=== PATIENT | male | born 1935 | race Caucasian/White ===

== ENCOUNTER 2016-06-12 11:13 | Inpatient (IN) | payer MEDICARE ==
[~2016-06-12] VITALS: Ht 177.8 cm; Wt 82.0 kg
[2016-06-12 11:26] VITALS: BP 140/73; PULSE 67; RESP 13; O2SAT 100
--- NOTE | 2016-06-12 11:26 | ED.REPORT ---
HPI-General Illness Date of Service Jun 12, 2016 ED Provider: Barrett Skaggs MD 81 year old male with a hx of DM (non-compliant with medications), HTN and dementia (per family, no official diagnosis) who presents to the ER via EMS due to confusion. Pt fell last night while walking the dog. The neighbor noted some slight slurring but otherwise cognitively normal. This morning at 09:30 the patient's son found the patient on the ground. He noted a broken L toe, but no other injury. At baseline the patient is alert and oriented x3. When I asked him why he was here today he stated "checking my 1935". Pt's states that the patient has not been eating well for 1-2 days. Medics noted the patient to have a reading of "hi" on the glucometer. Nursing Notes Stated Complaint: HIGH BLOOD PRESSURE Chief Complaint: General Complaint Nursing Notes Reviewed: Yes Allergies: Coded Allergies: No Known Allergies (Unverified , 06/12/16) General Time Seen by MD: 11:25 Chief Complaint Altered mental status Hx Obtained From: Patient, Spouse, Son, EMS Unable to Obtain Hx: Patient condition, Mental status Arrived By: Ambulance Past Medical History Past Medical History Reports: Diabetes mellitus, Hypertension, Denies: Asthma, Cancer, Congestive heart failure, Coronary artery disease, Stroke Reports: Dementia Past Surgical History None reported Smoking History Unknown if Ever Smoker Social History Other Social History: Good social support Review of Systems Unable to Obtain ROS Patient condition, Mental status (Confused) Full Review of Systems Neurologic: Reports: Confusion, Problem walking Physical Exam Vital Signs Vital Signs Date Time Temp Pulse Resp B/P Pulse Ox O2 Delivery O2 Flow Rate FiO2 06/12/16 14:30 77 15 126/48 99 Room Air 06/12/16 11:26 35.7 67 13 140/73 100 Room Air Initial VS: Reviewed General/Constitutional: Awake, Alert Head / Eyes: Atraumatic (No visible injury), Normocephalic, PERRL Neck: Atraumatic, Full range of motion Respiratory / Chest: Breath sounds NL, Breath sounds = bilat, No respiratory distress, No rales, No rhonchi, No wheezing Cardiovascular: Heart rate NL, Regular rhythm, Heart sounds NL, No murmurs, Cap refill not delayed, Peripheral circulation NL Abdomen: Soft, Non-tender Upper Extremities Upper Extremity / MS: Atraumatic, Inspection NL, Full range of motion, Non- tender Lower Extremity / Pelvis / MS: Full range of motion 2nd toe L foot broken Neurologic: No motor deficits (PEDERSEN x4) Mental Status: Positive: Confused, Disoriented to person, Disoriented to place , Disoriented to time Face symmetric Interpretation & Diagnostics Lab Results Interpretation Result Diagram: 06/12/16 1200 06/12/16 1200 Test 06/12/16 12:00 06/12/16 13:20 White Blood Count 19.4th/mm3 (3.8-10.1) Red Blood Count 3.58mil/mm3 (4.40-5.80) Hemoglobin 11.5g/dL (13.8-17.2) Hematocrit 33.1% (41.0-50.0) Mean Corpuscular Volume 92.5fL (81-100) Mean Corpuscular Hemoglobin 32.1pg (27.0-35.0) Mean Corpuscular Hemoglobin Concent 34.7% (32.0-37.0) Red Cell Distribution Width 12.8% (12.3-15.4) Platelet Count 317bil/L (150-400) Neutrophils (%) (Auto) 83.1% (40-74) Lymphocytes (%) (Auto) 5.6% (14-46) Monocytes (%) (Auto) 10.8% (4-12) Eosinophils (%) (Auto) 0.1% (0-5) Basophils (%) (Auto) 0.1% (0-3) Sodium Level 125mEq/L (134-144) Potassium Level 5.7mEq/L (3.5-5.2) Chloride Level 81mEq/L (97-108) Carbon Dioxide Level 10mmol/L (18-29) Blood Urea Nitrogen 88mg/dL (8-27) Creatinine 2.69mg/dL (0.76-1.27) Estimat Glomerular Filtration Rate 24mL/min (>59) Glucose Level 967mg/dL (60-99) Lactic Acid Level 2.2mmol/L (0.4-2.0) Calcium Level 9.0mg/dL (8.5-10.1) Total Bilirubin 0.5mg/dL (0.0-1.2) Aspartate Amino Transf (AST/SGOT) 22U/L (0-50) Alanine Aminotransferase (ALT/SGPT) 17U/L (0-44) Alkaline Phosphatase 76U/L (25-160) Total Protein 6.8g/dL (6.4-8.4) Albumin 3.9g/dL (3.4-5.0) Hold Gomez Top Tube Received (Received) Ketones Small (Negative) Urine Color Straw (YELLOW) Urine Appearance Clear (CLEAR,HAZY) Urine pH 5.0 (5.0-8.0) Urine Specific [place] 1.015 (1.003-1.035) Urine Protein Negativemg/dL (NEG,TRACE) Urine Glucose (UA) 1000mg/dL (NEGATIVE) Urine Ketones 15mg/dL (NEGATIVE) Urine Occult Blood Moderate (NEGATIVE) Urine Nitrite Negative (NEGATIVE) Urine Bilirubin Negative (NEGATIVE) Urine Urobilinogen Normalmg/dL (NORMAL) Urine Leukocyte Esterase Negative (NEGATIVE) Urine RBC 0-2/hpf (0-2) Urine WBC 0-5/hpf (0-5) Urine Epithelial Cells Occasional/hpf (NONE-MOD) Urine Crystals None seen (NONE SEEN) Urine Bacteria None/hpf (NONE-FEW) Urine Hyaline Casts None/lpf (NONE) Urine Granular Casts None seen (NONE SEEN) Urine Waxy Casts None seen (NONE SEEN) Urine Red Blood Cell Casts None seen (NONE SEEN) Urine White Blood Cell Casts None seen (NONE SEEN) Urine Mucus None seen (None Seen) Urine Trichomonas None seen (NONE SEEN) Urine Yeast None (NONE SEEN) Urinalysis Comment None Urine Culture Reflexed Not indicated General Lab Results Interp 1: Labs reviewed ECG Interpretation ECG Interpretation: PAC RBBB LVH with IVCD and secondary repol abnormality Prolonged QT interval Time: 11:45 Interpreted by: ED physician Normal ECG Interpretation: Normal rate (69), Normal sinus rhythm X-Ray Chest Interpretation Chest Xray Interpretation: IMPRESSION: No acute cardiopulmonary disease process. Dictated by: Gisselle Weaver MD, PhD on 06/12/2016 at 12:14 View: Portable, 1 view Interpretation / Wet Read by: Interpret - Radiologist CT Head Interpretation IMPRESSION: No acute intracranial disease process. Dictated by: Gisselle Weaver MD, PhD on 06/12/2016 at 12:57 Study: Head CT no contrast Interpretation / Wet Read by: Interpret - Radiologist Re-Eval/Medical Decision Med Decision/Clinical Course Elderly gentleman not well known to our emergency department comes with 2 days of worsening confusion and decreased by mouth intake and noncompliance with insulin medication. He had an unwitnessed fall in the past 2 days. While at baseline he is somewhat demented, today he is dramatically disoriented to the point where he does not recognize his own son. He has severe urinary retention and acute kidney injury and diabetic ketoacidosis with a glucose of 900 and anion gap of 36. He will be admitted to the ICU on DKA protocol copious oral hydration. No source of infection is identified at this point so no empiric antibiotics are instituted. Pittman catheter is placed. Prior to this, post void residual was 700 mL. Time of Eval: 13:30 Re-Evaluation/Progress Note: Updated pt and family of labs, ECG and imaging results. Recommended admission. They understand and agrees with plan. All questions addressed. Consultation : Referral / Consult Name: Christi Nicole MD Consulted With: Hospitalist Call Returned at: 14:45 Solar Sales Specialist: Will see patient, Agrees with eval, Agrees with plan, Accepts admit Counseled Regarding: Diagnosis, Lab results, Need for admission Discharge & Departure Primary Impression: DKA (diabetic ketoacidoses) Diabetes mellitus type: other specified (including CHASE) Diabetes mellitus complication detail: without coma Qualified Code: E13.10 - Other specified diabetes mellitus with ketoacidosis without coma Additional Impressions: Acute urinary retention Acute kidney injury Disposition: ADMITTED TO HOSPITAL Discharge Condition All VS Reviewed: Yes Crit Care Except Billable Proc Time Spent: 30-74 minutes Services Performed: Patient management by me, Time spent at bedside, Reviewing test results, Reviewing imaging, Discussing patient care, Documentation in record, Time with fam/surrogate Scribe Attestation Portions of this note were transcribed by Ofelia Darby. I, (Dr. Skaggs) personally performed the history, physical exam and medical decision-making; I reviewed and confirmed the accuracy of the information in the transcribed note. Signed by: Ofelia Darby. Alma Delia, 06/12/2016, 133Barrett Wayne MD Jun 12, 2016 11:26 Ofelia Darby Jun 12, 2016 12:29
--- NOTE | 2016-06-12 12:15 | DRSVH ---
PROCEDURE: X-RAY CHEST ONE VIEW, PORTABLE ([id number]) INDICATIONS: fall/ decreased loc, diabetic TECHNIQUE: One view of the chest was acquired. COMPARISON: None. FINDINGS: Surgical changes and devices: None. Lungs and pleura: No pleural effusions or pneumothorax. Lungs are clear. Mediastinum: Mediastinal contours appear normal. Heart size is normal. Bones and chest wall: No suspicious bony lesions. Overlying soft tissues appear unremarkable. IMPRESSION: No acute cardiopulmonary disease process. Dictated by: Gisselle Weaver MD, PhD on 06/12/2016 at 12:14 Approved by: Gisselle Weaver MD, PhD on 06/12/2016 at 12:14
[2016-06-12 12:23] LABS: BASOPHILS % (AUTO) 0.1 % (0-3); EOSINOPHILS % (AUTO) 0.1 % (0-5); MONOCYTES % (AUTO) 10.8 % (4-12); Mean Corpuscular Hemoglobin 32.1 pg (27.0-35.0); Mean Corpuscular Volume 92.5 fL (81-100); NEUTROPHILS % (AUTO) 83.1 % (40-74); Platelet Count 317 bil/L (150-400)
--- NOTE | 2016-06-12 13:00 | DRSVH ---
PROCEDURE: CT BRAIN WITHOUT CONTRAST ([id number]) INDICATIONS: fall TECHNIQUE: Noncontrast 4.5 mm thick angled axial sections acquired from the foramen magnum to the vertex, with c oronal reformats. COMPARISON: None. FINDINGS: Image quality: Limited by motion artifact. CSF spaces: Basal cisterns are patent. No extra-axial fluid collections. The ventricles are symmet bettye in size and shape. Brain: No intracranial bleeds or masses. There is cerebral volume loss for age, with resultant vent ricular and sulcal prominence. Old, small, right putamen lacunar infarct versus prominent perivascul ar space is noted. There are periventricular and deep white matter chronic small vessel ischemic grisel nges. There is intracranial internal carotid artery and vertebral artery atherosclerosis. Skull and face: Calvarium and visualized facial bones appear intact, without suspicious lesions. Sinuses: Visualized sinuses and mastoids are clear. IMPRESSION: No acute intracranial disease process. Dictated by: Gisselle Weaver MD, PhD on 06/12/2016 at 12:57 Approved by: Gisselle Weaver MD, PhD on 06/12/2016 at 12:59
[2016-06-12] MEDS ORDERED: 0.9% Sodium Chloride 1,000 ML IV SCH ×3 (13:10→22:15)
[2016-06-12] MEDS ORDERED: Lidocaine 2% 6mL Topical Jelly ONE (13:39)
[2016-06-12 13:44] LABS: APPEARANCE,URINE CLEAR (CLEAR,HAZY); COLOR,URINE STRAW (YELLOW); OCCULT BLOOD,URINE MODERATE (NEGATIVE); UROBILINOGEN,URINE NORMAL (NORMAL)
[2016-06-12 14:00] VITALS: BP 145/49; PULSE 75; RESP 19; O2SAT 100
--- NOTE | 2016-06-12 14:04 | NUR ---
Admit nurse: Attempted to complete admit, per medical record pt has hx of dementia. Pt is unable to provide information, whispers "diabetes" and "I have 13 or 14 or 18" randomly. Per ER nurse, pt gets his meds through the [facility], which is closed on Tuesday. Family does not have a med list with them, are currently not in the room. Will attempt to track family down and get more information.
[2016-06-12 14:30] VITALS: BP 126/48; PULSE 77; RESP 15; O2SAT 99
[2016-06-12] MEDS ORDERED: Insulin Human REGular Inj 100 UNIT in 0.9% Sodium Chloride-Pha MIX 100 ML IV ONE (14:35)
[2016-06-12] MEDS ORDERED: Insulin Human REGular-Omnicell 100 Unit/mL ONE (14:39)
[2016-06-12] MEDS ORDERED: Ondansetron 2 mg/mL 2 mL Inj IVPUSH PRN (14:50)
[2016-06-12] MEDS ORDERED: Alum-Mag Hydrox-Simeth 30 mL Suspension PO PRN (15:25)
[2016-06-12] MEDS ORDERED: Senna-Docusate 8.6-50 mg Tablet PO PRN (15:25)
[2016-06-12] MEDS ORDERED: Polyethylene Glycol (PEG) 17 Gm Powder PO PRN (15:25)
[2016-06-12 15:30] VITALS: BP 114/58; PULSE 80; RESP 16; O2SAT 100
--- NOTE | 2016-06-12 15:53 | PCM.HPMED ---
Subjective Date of Service Jun 12, 2016 Primary Provider: Admitting Physician: Christi Nicole MD Primary Care Physician: Kana Ferrari MD Attending Physician: Christi Nicole MD Admit Status: From the Emergency Department, Critical Care Chief Complaint: confusion, hyperglycemia History of Present Illness: He is reported to have some mild underlying dementia. He also has mood swings which are worse in the evenings. For at least the last 3 days he has been refusing to take insulin, stating that it doesn't help any way. His food and fluid intake has been poor and his reports he has not had anything since yesterday lunchtime. Last evening he was slurring his words and seemed confused and incoherent. He also fell last evening but no injury. This morning when son arrived the patient was on the floor, the falling in, no injury. Son says he was not very responsive, mostly not answering any questions , although he was conscious. assessment nurse practitioner were called and they did a Glucoscan and found that it was "high" and he was brought to the emergency department. There has not any fever, chills, sweats. No URI or cough. No complaints of pain is chronic intermittent headaches. He did vomit once last evening but no blood noted. does not think she had diarrhea. She is not aware of any urinary complaints. Review of Systems: he has complaining of headache for the last 6-8 months occurring on a nearly daily basis but has been seen by his PCP for this. He has been diagnosed with mild dementia but usually makes sense, but does have mood swings especially in the evenings which the says is felt to be related to his dementia. He is occasionally incontinent of stool, stating he did not make it to the bathroom time. Review of systems is otherwise unremarkable other than as noted in history of present illness Allergies Coded Allergies: No Known Allergies (Unverified , 06/12/16) Home Medications Patient is not able to give his medication list and also does not know the names of his medicines. She says he is on a pill for memory, 1 for mood, 1 for blood pressure that starts with L (agrees that it is lisinopril when this name is mentioned), one for cholesterol, possibly some others, and then he takes regular insulin and Lantus insulin although she does not know doses. 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 and it sounds like it had skin grafting from the neck Son and both deny knowledge of heart or lung disease Surgical History See past medical history Family History he never knew his father, thinks his mother had leukemia and related to a spider bite, a brother had prostate cancer and possibly there is some other cancer in the family, no known heart disease Social History Occupation: retired insurance underwriting assistant Hx Alcohol Use: Yes (he drinks on nearly a daily basis, often 8 ounces of wine per day but sometimes up to a full bottle per day, sometimes he has bourbon or whiskey instead, has not noted him to have her health withdrawal symptoms, as his last drink of alcohol was now at least a week ago) Hx Tobacco Use: Yes Smoking Status: Former Smoker (quit 5-10 years ago, at one point as high as 2 packs per day, started as a teenager), Unknown if Ever Smoker Exam Vital Signs Vital Sign - Last Date Time Temp Pulse Resp B/P Pulse Ox O2 Delivery O2 Flow Rate FiO2 06/12/16 14:30 77 15 126/48 99 Room Air 06/12/16 11:26 35.7 Exam General: Alert but does not answer questions appropriately, answering with words that do not make sense intact family. Seems anxious, moving restlessly on the bed. Neck: Supple, no lymphadenopathy, no JVD, carotids 2+ Heart: Regular Lungs: Clear Abdomen: Soft, non-tender, normal bowel tones, no apparent masses or hepatosplenomegaly, Pittman catheter in place. Extremities: No pedal edema. He has ecchymosis all over both kneecaps and also of the left second toe Neuro: Hand etl data architect strong and equal, some difficulty getting him to follow simple exams but eventually does lift both legs easily off the bed. Lab and Diagnostics Result Diagram: 06/12/16 1200 06/12/16 1200 Assessment & Plan # Diabetes mellitus with severe hyperglycemia and also diabetic ketoacidosis He is being admitted to the ICU and will follow DKA/insulin drip protocol Aggressive IV fluid resuscitation Follow potassium and other lab # Acute kidney injury, most likely related to volume depletion, will be treated as above. Volume Depletion most likely related to his hyperglycemia and poor recent intake # Urinary retention, Pittman catheter now in place It was reported by the ED physician that the patient was able to void 400 mL but then still had a another 700-800 mL by bladder scanner and Pittman catheter was placed # Acute worsening of underlying dementia, now with delirium Most likely this is multi-factorial and related to the above #Hypertension and hyperlipidemia Once he is stable and it is known what his medications can Resume his home medications Still needs med rec done, home med list not yet available Christi Nicole MD Jun 12, 2016 15:53
[2016-06-12] MEDS ORDERED: D5W1/2NS 1,000 mL IV PRN (16:00)
[2016-06-12 16:20] VITALS: BP 118/38; PULSE 76; RESP 13; O2SAT 99
[2016-06-12] MEDS: 0.9% Sodium Chloride 1,000 ML IV SCH ×4 (16:42→22:00)
[2016-06-12 17:12] LABS: Magnesium 2.8 mg/dL (1.6-2.6); Phosphorus 5.5 mg/dL (2.5-4.9)
--- NOTE | 2016-06-12 18:43 | NUR ---
Admit to CCU/BG/confusion Patient arrived to CCU from ER at 1550. Pt restless and confused, not following commands and pulling on lines. at bedside, unable to give any info about meds or med list. Family to bring it with them tomorrow. Bedside blood glucose trending down, insuling gtt running DKA protocol (see flow sheet). As blood sugar trends down, pt less agitated and restless. Son at bedside reassuring patient. Keeping pt NPO other than ice chips until confusion clears and pt is following commands. Frequent rounding continues. Pt turning and moving independently in bed. Bed alarm on
[2016-06-12 19:30] VITALS: BP 115/75; PULSE 76; RESP 16; O2SAT 98
[2016-06-13] VITALS (9 sets, daily range): BP systolic 128–174; BP diastolic 49–74; PULSE 61–101; RESP 13–26; O2SAT 93–100
[2016-06-13] MEDS ORDERED: Dextrose 5% 0.45% NaCl 1,000 ML IV SCH (00:15)
[2016-06-13] MEDS ORDERED: Insulin Human REGular 100 Units/100 mL NS IV SCH ×2 (00:20)
[2016-06-13] MEDS: 0.9% Sodium Chloride 1,000 ML IV SCH ×2 (00:37→18:24)
[2016-06-13 03:46] LABS: Mean Corpuscular Hemoglobin 31.6 pg (27.0-35.0)
[2016-06-13 04:05] LABS: Magnesium 2.5 mg/dL (1.6-2.6); Phosphorus 3.7 mg/dL (2.5-4.9)
--- NOTE | 2016-06-13 07:51 | NUR ---
DKA Pt DKA resolved. aware of lab results. DKA protocol D/C and Non-DKA initiated. Pt is confused and disoriented despite redirection and reorientation. Robert lynch was attempting pull on his FC and monitor wires. Sitter at the bedside for safety. VSS. No overt complications noted. (Please refer to CCU flowsheet and insulin flowsheet for further details)
--- NOTE | 2016-06-13 15:19 | NUR ---
Transfer of Care/mentation/BG Pt report given to Mukund AGUILLON on PCC. Pt on insulin gtt (see interventions), titrated per protocol. Pt LOC still alert, oriented to self and family. They state he is more confused than his baseline. Pt is pulling at lines and IV, using restraints when no sitter or family available. Frequent rounding continues. Pt moving independently in bed.
--- NOTE | 2016-06-13 16:01 | NUR ---
Social Work-initial assessment: Data & Assessment: See initial assessment. EMR Reviewed. Pt is a 81 y/o male who was admitted on 06/12/16 for Acute Mental Status, RONDA and DKA per H&P. Pt's insurance is [facility] and PCP is Kana Ferrari MD at [facility]. Pt's readmission score is 4-high risk. SW met with pt, patient's , Vivian [id number], to discuss discharge planning, SW role explained and initial assessment complete. Pt resides at home with in a single level home with three steps to enter where pt was independent with basic ADLs. Pt independent at baseline and does drive. Pt has no HH or SNF history. Pt has not completed DPOA/ advanced directive and accepted information from SW. Pt has no intermediate school teacher care benefits, but does have VA benefits. SW discussed HH services and skilled nursing care planning. SW provided patient and patient's family with a choice list for HH and SNF. Patient's family wanted to review. SW will follow patient to rule out HH and SNF. SW provided phone number and plan on white board in room. SW will continue to follow. Plan:Pt to likely discharge home with HH vs SNF. Pt's family is supportive. SW will continue to follow. Odalys Casillas LMSW, GUSTAVO Addendum: 06/13/16 at 1629 by ODALYS CASILLAS SS Amended: Links added.
--- NOTE | 2016-06-13 16:06 | PCM.PNMED ---
Subjective Date of Service Jun 13, 2016 Subjective Overnight since admission patient has done very well, now more alert and coming back to base line, metabolic acidosis resolved and blood sugars now under control on an IV non-dka protocol. Family came in and patient very unsure of how much insulin he uses, but uses Lantus at night and a short acting insulin apparently with a correctional scale. Often he does not use his insulin and he manages it. Exam Vital Signs Vital Sign - Last Date Time Temp Pulse Resp B/P Pulse Ox O2 Delivery O2 Flow Rate FiO2 06/13/16 12:15 101 26 174/74 97 OxyMask 4.00 06/13/16 12:00 36.7 Intake and Output 06/12/16 06/12/16 06/13/16 Cumulative From/Thru 15:00 23:00 07:00 06/12/16 11:26 - 06/13/16 06:48 Intake Total 2000 ml 3556 ml 932 ml 6488 ml Output Total 400 ml 1400 ml 800 ml 2600 ml Balance 1600 ml 2156 ml 132 ml 3888 ml Intake Oral 15 ml 15 ml IV Total 2000 ml 3541 ml 932 ml 6473 ml Output Urine Total 400 ml 1400 ml 800 ml 2600 ml Bladder Scan Volume Amount 717 mLs # Voids 1 1 Exam Eyes; julia, eom intact ENMT; well hydrated mucosa, no lesions CV; systolic murmur, no gallop, no jvd Resp; coarse but otherwise clear bilaterally GI; soft, non-acute and benign Skin; subacute mild bruising to both knees, swollen red and ecchymotic 2nd left toe Neuro; 2-12 intact with no gross motor or sensory defects, gait not tested at this time Lab and Diagnostics Result Diagram: 06/13/165 06/13/16 0315 Assessment & Plan #1 Acute Diabetic Keto Acidosis, present on admission, resolved -transition from IV DKA protocol to basal bolus insulin dosing -transfer to [facility] status -continue NS at 50cc/hour overnight -repeat bmp in am #2 Chronic type 2 Uncontrolled Diabetes Mellitus, now presumable insulin dependent, present on admission, active -HbA1C = 13.9 -home insulin doses not know and not being followed by patient, -start following insulin regimen, adjust in AM, and get home dosing -basal insulin; 5 q hs -nutritional insulin 3 ac meals -low dose correctional scale -will hold metformin during this admission,consider restarting at discharge -prior to patient going home an alternative career development facilitator will need to manage patient insulin and needs to be taught prior to discharge #3 Acute Renal Failure, present on admission, improving -secondary to DKA and dehydration -baseline unknown -creatinine 2.69 on admit, now 1.64 -hold metformin, lactic acid elevated on admit, now normal -continue NS at 50cc/hour -bmp in am #4 Acute Urinary Retention, present on admission, active -consider removing Pittman in am #5 Chronic Alcohol use disorder, present on admission, active -dose with IV thiamin -watch for withdrawal #6 Possible acute overuse of Acetaminophen, present on admission, active -check Tylenol level #7 Acute trauma to Left Second Toe, present on admission, active -re-evaluate in AM, consider x-ray #8 Chronic Dementia, present on admission, stable -continue donepezil #9 Chronic Hypertension, present on admission, stable -resume lisinopril and simvastatin in AM if stable #10 Disposition -patient not able to manage insulin himself, can alternative caregiver (?) be taught how to manage patien's insulin I asked Nurse to complete Med Rec as we now have a list of medications. Patient take Lantus at night (dose unknown), and humulin R before meals (doses unknown). VTE Mechanical Devices: Intermittant Pneumatic CD Prateek Cadet MD Jun 13, 2016 16:06
[2016-06-13] MEDS ORDERED: Insulin GLARgine 100 Unit/mL Syringe SUBQ STA (16:33)
[2016-06-13] MEDS ORDERED: Glucose 40% Oral Gel 15 Gm Tube PO PRN (16:35)
[2016-06-13] MEDS ORDERED: Thiamine Inj 100 MG in Dextrose 5% 50 ML IV ONE (16:40)
[2016-06-13] MEDS ORDERED: LISI2.5T PO (16:50)
[2016-06-13] MEDS ORDERED: SERT100T9 PO (17:03)
[2016-06-13] MEDS ORDERED: GABA-502 PO (17:03)
[2016-06-13] MEDS ORDERED: DONE10TA42 PO (17:03)
[2016-06-13] MEDS ORDERED: INSU100V28 SUBQ (17:03)
[2016-06-13] MEDS ORDERED: METF500T4 PO (17:03)
[2016-06-13] MEDS ORDERED: INSU100V7 SUBQ (17:03)
[2016-06-13] MEDS ORDERED: SIMV80TA4 PO (17:03)
[2016-06-13] MEDS ORDERED: BUSP15TA3 PO (17:03)
[2016-06-13] MEDS: Insulin LISPRO 300 Unit/3 mL Inj SUBQ SCH ×2 (18:55→21:56)
[2016-06-13] MEDS: BusPIRone 15 mg Dividose Tablet PO SCH (20:09)
[2016-06-14] VITALS (8 sets, daily range): BP systolic 101–149; BP diastolic 53–76; PULSE 59–72; RESP 12–18; O2SAT 95–100
--- NOTE | 2016-06-14 08:21 | NUR ---
Mentation/Restful Night Pt oriented to self and sometimes place, compliant w/ all care, PEDERSEN and alert. Pt slept intermittently between care interventions, all vitals stable, denied pain. BG 200s this shift, treated w/ sliding scale.
[2016-06-14] MEDS: Insulin LISPRO 300 Unit/3 mL Inj SUBQ SCH ×4 (08:31→21:15)
[2016-06-14 08:33] LABS: BASOPHILS % (AUTO) 0.4 % (0-3); EOSINOPHILS % (AUTO) 1.5 % (0-5); MONOCYTES % (AUTO) 12.2 % (4-12); Mean Corpuscular Hemoglobin 32.6 pg (27.0-35.0); Mean Corpuscular Volume 92.4 fL (81-100); NEUTROPHILS % (AUTO) 59.3 % (40-74); Platelet Count 275 bil/L (150-400)
[2016-06-14] MEDS: BusPIRone 15 mg Dividose Tablet PO SCH ×2 (09:34→20:49)
--- NOTE | 2016-06-14 14:19 | NUR ---
Evaluation completed. Please go to "Notes" then click on "Assessments and Notes" (bottom left corner of screen). Then select appropriate discipline tab on top of screen.
[2016-06-14] MEDS: 0.9% Sodium Chloride 1,000 ML IV SCH (15:24)
--- NOTE | 2016-06-14 16:26 | NUR ---
Social Work Note: Continued Discharge Planning Data& Assessment: Per PT, pt requires SNF at time of discharge. SW met with pt and pt son at bedside to discuss discharge planning. SW answered questions regarding SNF vs. HH with pt and pt family. Pt is hoping to work hard at rehab and then transfer home with home health after a week or two. Pt and pt family are still reviewing SNF list. SW to follow up with pt regarding preferences. Pt and pt family deny any other needs at this time. SW to continue to follow. Plan: Anticipated discharge to SNF when medically ready. SNF LIST HAS BEEN PROVIDED, family reviewing list for preferences still. SW to follow up with pt regarding preferences. Pt and pt family deny any other needs at this time. SW to continue to follow. FRANCIS Marroquin
--- NOTE | 2016-06-14 18:20 | NUR ---
Mentation/Nutrition/Diabetic Teaching Pt mentation continues to be alert to self and family, pt knows he is in hospital, but forgets which one, also does not know date or time of year. Pt advanced to ADA/CC diet, tolerating well, is able to take medications with water. No s/s of aspiration. Blood sugars today 265, 329 and 288. Discussed pt's current regiment of blood glucose management. Pt acknowledged that he does not check his blood sugars on a daily basis and frequently does not take his insulin as prescribed. Pt was instructed the importance of taking his insulin as directed to avoid hyperglycemia/DKA, especially when he is ill, as he stated he recently had flu like symptoms. Pt's son was at bedside and acknowledged teaching.
--- NOTE | 2016-06-14 20:19 | PCM.PNMED ---
Subjective Date of Service Jun 14, 2016 Subjective Patient states he is feeling well, no somatic complaints. Believes he still feels a little weak and not at 100% baseline. His speech is whispered, and he cannot convey why his voices like this, other than this is not his normal voice. Exam Vital Signs Vital Sign - Last Date Time Temp Pulse Resp B/P Pulse Ox O2 Delivery O2 Flow Rate FiO2 06/14/16 17:29 36.7 64 18 128/63 100 Room Air 06/13/16 12:15 4.00 Intake and Output 06/13/16 06/13/16 06/14/16 Cumulative From/Thru 14:59 22:59 06:59 06/12/16 11:26 - 06/14/16 06:44 Intake Total 1254 ml 800 ml 8542 ml Output Total 1600 ml 4200 ml Balance 1254 ml -800 ml 4342 ml Intake Oral 800 ml 815 ml IV Total 1254 ml 7727 ml Output Urine Total 1600 ml 4200 ml # Voids 1 Exam General: Laying in bed, no apparent distress. Eating applesauce HEENT: Normocephalic, atraumatic, EOMI grossly, Cardiovascular: Systolic heart murmur, regular rate and rhythm, no JVD, peripheral pulses intact equally to upper and lower extremities. Pulmonary: Clear to auscultation bilaterally, no W/R/R. Abdominal: Soft to palpation, bowel sounds present 4, no hepatosplenomegaly. Negative rebound. Extremities: No edema appreciated. No tenderness, asymmetry. Neuro: Neurologically grossly intact, strength is equal bilaterally upper and lower extremities. MSK: able to move extremities on their own volition, strength 5 out of 5 equal bilaterally to upper and lower extremities. Lab and Diagnostics Result Diagram: 06/14/16 0825 06/14/16 0345 X-Rays, CTs and MRIs Portable chest x-ray performed 06/12/2016 IMPRESSION: No acute cardiopulmonary disease process. Dictated by: Gisselle Weaver MD, PhD on 06/12/2016 at 12:[address] without contrast performed 06/12/2016 IMPRESSION: No acute intracranial disease process. Dictated by: Gisselle Weaver MD, PhD on 06/12/2016 at 12:57 Assessment & Plan #2 Chronic type 2 Uncontrolled Diabetes Mellitus, now presumable insulin dependent, present on admission, active -HbA1C = 13.9 -home insulin doses not know and not being followed by patient, -start following insulin regimen, adjust in AM, and get home dosing -basal insulin; 5 q hs -nutritional insulin 3 ac meals -low dose correctional scale -will hold metformin during this admission,consider restarting at discharge -prior to patient going home an alternative transitions rn care coordinator will need to manage patient insulin and needs to be taught prior to discharge -Diabetes education for patient and family's. -Residual weakness, physical therapy: Recommend discharge to SNF via cabulance for progression of safe functional mobility. PT to progress as pt tolerates. -C-peptide evaluation: Pending #1 Acute Diabetic Keto Acidosis, present on admission, resolved -transition from IV DKA protocol to basal bolus insulin dosing -transfer to [facility] status -continue NS at 50cc/hour overnight -repeat bmp in am #3 Acute Renal Failure, present on admission, resolved -secondary to DKA and dehydration -baseline unknown -creatinine 2.69 on admit, now 1.07 -hold metformin, lactic acid elevated on admit, now normal -continue NS at 50cc/hour -bmp in am #4 Acute Urinary Retention, present on admission, active -Pittman to be removed attempt in-bed urinal. #5 Chronic Alcohol use disorder, present on admission, active -dose with IV thiamin -watch for withdrawal #6 Possible acute overuse of Acetaminophen, present on admission, active -Tylenol level was negative #7 Acute trauma to Left Second Toe, present on admission, active -re-evaluate in AM, consider x-ray #8 Chronic Dementia, present on admission, stable -continue donepezil #9 Chronic Hypertension, present on admission, stable -resume lisinopril and simvastatin in AM if stable #10 Disposition -patient not able to manage insulin himself, can alternative caregiver (?) be taught how to manage patien's insulin Patient take Lantus at night (dose unknown), and humulin R before meals (doses unknown). Pain Evaluation: Adequate Pain Control GI Prophylaxis: Not indicated VTE Prophylaxis: Other (on Plavix) VTE Mechanical Devices: Intermittant Pneumatic CD Resuscitation Status: CPR: Attempt Resuscitation Attending Statement The patient was seen and examined together with Dr. Pollack on 06/14/2016 and I agree with the history, exam and plan as outlined in the note above. . Nehemiah Pollack DO Jun 14, 2016 20:19 Manny Perez MD Jun 18, 2016 07:28
[2016-06-14] MEDS ORDERED: Insulin GLARgine 100 Unit/mL Syringe SUBQ SCH (21:00)
--- NOTE | 2016-06-14 23:13 | NUR ---
Pittman Pittman catheter removed per orders.
[2016-06-15 03:25] VITALS: BP 128/65; PULSE 55; RESP 16; O2SAT 99
[2016-06-15 03:55] LABS: Mean Corpuscular Hemoglobin 32.1 pg (27.0-35.0); Mean Corpuscular Volume 93.5 fL (81-100)
--- NOTE | 2016-06-15 05:26 | NUR ---
Mentation/void Pt able to void 300 cc clear yellow urine after engel catheter removed. Denies discomfort. Continues to be oriented only to self. VSS with room air sats in upper 90's. Tele has been sinus lala in the mid-upper 50's.
[2016-06-15 08:33] VITALS: BP 136/69; PULSE 59; RESP 16; O2SAT 99
[2016-06-15] MEDS: 0.9% Sodium Chloride 1,000 ML IV SCH (08:40)
[2016-06-15] MEDS: BusPIRone 15 mg Dividose Tablet PO SCH ×2 (08:44→20:55)
[2016-06-15] MEDS: Insulin LISPRO 300 Unit/3 mL Inj SUBQ SCH ×4 (08:46→22:21)
--- NOTE | 2016-06-15 10:31 | NUR ---
Social Work Note: Continued Discharge Planning Data& Assessment: SW followed up with pt son Justo regarding discharge planning. Pt son explained after research his top three preferences would be (1) [place] [facility] (2) [facility] and rehab in [place] (3) [facility] and rehab in [place]. UR specialist notified and faxing referrals. Pt son denies any other needs at this time. SW to continue to follow. Plan: Anticipated discharge to SNF when medically ready. Referrals being faxed to [facility], [facility] and [facility]. Pt son denies any other needs at this time. SW to continue to follow. FRANCIS Marroquin
--- NOTE | 2016-06-15 10:45 | NUR ---
Faxed referral to [facility] in [facility] and [facility] in [place].
--- NOTE | 2016-06-15 11:12 | NUR ---
Bed Alarm/Impulsive Pt out of bed to use BR without calling for assistance. Bed alarm had not been turned back on after he had been working with PT. This RN went into his room as he got out of bed to assist him. Pt very unsteady on his feet, he had to lean heavily onto this RN for support. Pt was assisted to use the toilet to void. Gait belt was placed on him and he was encouraged to use walker to get back to his bed. Pt sandie alarm was turned on and pt instructed to use call light to call for assistance. CAGE MANAGER was also updated to pt's behavior.
[2016-06-15 11:14] VITALS: PULSE 56
[2016-06-15 12:58] VITALS: BP 128/67; PULSE 61; RESP 17; O2SAT 98
--- NOTE | 2016-06-15 13:52 | NUR ---
[facility] in [place] will accept patient when ready with to follow. His office is located in [place]. Updated SOLAR INSTALLER TECHNICIAN
[2016-06-15] MEDS ORDERED: FLUT9.9S NS (16:16)
[2016-06-15] MEDS ORDERED: MINE3.5O5 LEFT_EYE (16:16)
[2016-06-15] MEDS ORDERED: INSU100V27 SUBQ (16:16)
[2016-06-15] MEDS ORDERED: DEXT1DRO8 LEFT_EYE (16:16)
[2016-06-15] MEDS ORDERED: ERYT1OIN7 LEFT_EYE (16:16)
[2016-06-15] MEDS ORDERED: ASPI-973 PO (16:16)
[2016-06-15 16:42] VITALS: BP 127/67; PULSE 61; RESP 18; O2SAT 98
--- NOTE | 2016-06-15 18:24 | PCM.PNMED ---
Subjective Date of Service Jun 15, 2016 Subjective Patient states he is doing well, has no somatic complaints. He is very pleasant , and interactive, but reports that he still feels weak and unsteady on his feet. Exam Vital Signs Vital Sign - Last Date Time Temp Pulse Resp B/P Pulse Ox O2 Delivery O2 Flow Rate FiO2 06/15/16 16:42 36.7 61 18 127/67 98 Room Air 06/13/16 12:15 4.00 Intake and Output 06/14/16 06/14/16 06/15/16 Cumulative From/Thru 15:00 23:00 07:00 06/12/16 11:26 - 06/15/16 06:12 Intake Total 683 ml 1121 ml 880 ml 20514 ml Output Total 1900 ml 800 ml 6900 ml Balance 683 ml -779 ml 80 ml 4326 ml Intake Oral 620 ml 300 ml 1735 ml IV Total 683 ml 501 ml 580 ml 9491 ml Output Urine Total 1900 ml 800 ml 6900 ml # Voids 1 # Bowel Movements 0 0 Exam General: Laying in bed, no apparent distress. HEENT: Normocephalic, atraumatic, EOMI grossly, Cardiovascular: Systolic heart murmur, regular rate and rhythm, no JVD, peripheral pulses intact equally to upper and lower extremities. Pulmonary: Clear to auscultation bilaterally, no W/R/R. Abdominal: Soft to palpation, bowel sounds present 4, no hepatosplenomegaly. Negative rebound. Extremities: No edema appreciated. No tenderness, asymmetry. No wounds or ulcers appreciated on his feet Neuro: Neurologically grossly intact, strength is equal bilaterally upper and lower extremities. MSK: able to move extremities on their own volition, strength 5 out of 5 equal bilaterally to upper and lower extremities. Lab and Diagnostics Result Diagram: 06/15/16 0330 06/15/16 0330 X-Rays, CTs and MRIs Portable chest x-ray performed 06/12/2016 IMPRESSION: No acute cardiopulmonary disease process. Dictated by: Gisselle Weaver MD, PhD on 06/12/2016 at 12:[address] without contrast performed 06/12/2016 IMPRESSION: No acute intracranial disease process. Dictated by: Gisselle Weaver MD, PhD on 06/12/2016 at 12:57 Assessment & Plan 81-year-old gentleman insulin-dependent diabetes, alcohol use disorder, dementia , hypertension, presents with change in mental status, found to be having acute diabetic ketoacidosis secondary to uncontrolled diabetes mellitus. #1 Chronic type 2 Uncontrolled Diabetes Mellitus, now presumable insulin dependent, present on admission, active -HbA1C = 13.9, remains uncontrolled blood sugars high 200s and mid 300s -start following insulin regimen. Patient was on 30 of glargine twice a day, 12 units prandial [facility] -basal insulin; 15 q hs -nutritional insulin 3 ac meals -High dose correctional scale -will hold metformin during this admission,consider restarting at discharge -prior to patient going home an alternative care manager cna will need to manage patient insulin and needs to be taught prior to discharge -Diabetes education for patient and family's. -Residual weakness, physical therapy: Recommend discharge to SNF via cabulance for progression of safe functional mobility. PT to progress as pt tolerates. -C-peptide evaluation: 1.6 -Recheck blood sugar in the a.m. #2 Acute Diabetic Keto Acidosis, present on admission, resolved -Treatment for underlying poorly controlled diabetes, as above #3 Acute Renal Failure, present on admission, resolved -secondary to DKA and dehydration -baseline unknown -creatinine 2.69 on admit, now to normal range. #4 Acute Urinary Retention, present on admission, resolved -Patient tolerated Pittman removal and is able to use bedside urinal #5 Chronic Alcohol use disorder, present on admission, active -dose with IV thiamin -watch for withdrawal #6 Possible acute overuse of Acetaminophen, present on admission, resolved -Tylenol level was negative #7 Acute trauma to Left Second Toe, present on admission, improved Appears to have improved coloration today. Tomorrow, if any change consider x-ray #8 Chronic Dementia, present on admission, stable -continue donepezil - #9 Chronic Hypertension, present on admission, stable -resume lisinopril and simvastatin in AM if stable #10 Disposition -patient not able to manage insulin himself, has difficulties with memory, only oriented to himself. Discharge tomorrow to residential facility. GI Prophylaxis: Not indicated VTE Prophylaxis: Other (on Plavix) VTE Mechanical Devices: Intermittant Pneumatic CD Resuscitation Status: CPR: Attempt Resuscitation Attending Statement The patient was seen and examined together with Dr. Pollack on 06/15/2016 and I agree with the history, exam and plan as outlined in the note above. . Nehemiah Pollack DO Jun 15, 2016 18:24 Manny Perez MD Jun 18, 2016 07:29
[2016-06-15 20:49] VITALS: BP 127/58; PULSE 60; RESP 16; O2SAT 96
[2016-06-15] MEDS ORDERED: Insulin GLARgine 100 Unit/mL Syringe SUBQ SCH (21:00)
[2016-06-16 03:59] LABS: Mean Corpuscular Hemoglobin 31.5 pg (27.0-35.0); Mean Corpuscular Volume 93.1 fL (81-100)
[2016-06-16] MEDS: 0.9% Sodium Chloride 1,000 ML IV SCH (04:34)
[2016-06-16 05:55] VITALS: BP 108/57; PULSE 55; RESP 16; O2SAT 96
--- NOTE | 2016-06-16 06:48 | NUR ---
Mentation/Activity Pt oriented to self and sometimes place though not exact city. Pt compliant w/ all care and only getting up when needing to urinate. Pt at times used call light when needing to urinate. [place] and bed alarm used for safety. Pt moves well w/ SBA but can be somewhat unsteady and moves fast. Overall, pt appeared to sleep comfortably between care interventions. BGs in 260s.
[2016-06-16 08:12] VITALS: BP 97/47; PULSE 63; RESP 16; O2SAT 100
[2016-06-16] MEDS ORDERED: Insulin Human REGular 300 Unit/3 mL Inj SUBQ SCH (08:30)
[2016-06-16] MEDS: BusPIRone 15 mg Dividose Tablet PO SCH (08:30)
[2016-06-16] MEDS: Insulin LISPRO High-Dose Scale SUBQ PRN ×2 (08:38→12:32)
--- NOTE | 2016-06-16 08:47 | PCM.DIMED ---
Nehemiah Pollack DO 06/16/16 0847: Discharge Instructions Date of Service Jun 16, 2016 Dates of Hospitalization Jun 12, 2016 at 14:45 Discharge Diagnosis Discharge Diagnosis #1 Chronic type 2 Uncontrolled Diabetes Mellitus, Insulin Dependant, present on admission, active #2 Acute Diabetic Keto Acidosis, present on admission, resolved #3 Acute Renal Failure, present on admission, resolved #4 Acute Urinary Retention, present on admission, resolved #5 Chronic Alcohol use disorder, present on admission, active #6 Possible acute overuse of Acetaminophen, present on admission, resolved #7 Acute trauma to Left Second Toe, present on admission, improved #8 Chronic Dementia, present on admission, stable #9 Chronic Hypertension, present on admission, stable Medication Instructions There are no additional medications being prescribed, only resumption of medications from home. We have changed your Lantus Insulin regimen from 30 units BID to 20 Units BID STOP Novolin until review of blood sugar by primary care on the medication above. These quantities may increase as we evaluate the dose effects on your blood sugar. Diet Diabetic Activity Outpatient Physical Therapy Call your provider Fever or Chills, Shortness of breath, Bleeding, Chest pain, Vomitting, Excessive diarrhea, Weakness (unilateral) Patient Instructions Please continue taking your medications as prescribed. You are being admitted to [facility] for specialized care. To help you regain your strength. You need to have Physical Therapy Daily at [facility] to regain your strength and balance. -Consider this the physician order. Follow-up plan Dr. Worthy will be your physician at [facility]. Follow-up with PCP in: 1 week Manny Perez MD 06/18/16 0729: Discharge Instructions Attending's Statement The patient was seen and examined together with Dr. Pollack on 06/16/2016 and I agree with the history, exam and plan as outlined in the note above. . Nehemiah Pollack DO Jun 16, 2016 08:47 Manny Perez MD Jun 18, 2016 07:29
[2016-06-16] MEDS ORDERED: INSU100V7 SUBQ (09:45)
[2016-06-16] MEDS ORDERED: INSU100V27 SUBQ (09:45)
--- NOTE | 2016-06-16 13:15 | NUR ---
Social Work Note: Discharge Data& Assessment: Per pt is medically ready for discharge. Jerome Stroud is a 81 year old male admitted on 06/12/2016 for acute mental status, AKL, DKA. Per pt is medically improved and ready for discharge. Pt requires SNF per PT. AGUEDA confirmed with mortgage coordinator at [facility] (pt's first preference) that they do not have beds available for today. Pt second preference [facility] has confirmed they will be able to accept pt today for rehab stay. Pt and pt son Justo notified and agreeable for pt to go to [facility] in [place]. AGUEDA spoke with and faxed discharge paperwork to Yocasta in Admissions at [facility] rehab. Pt son and daughter in law at bedside and transporting pt to the facility today. notified. RN notified. All updated and agreeable to plan. Pt and pt family deny any other needs. No other discharge needs identified. Plan: Per pt is medically ready to discharge to [facility] in [place] via POV. All updated and agreeable to plan. Pt and pt family deny any other needs. No other discharge needs identified. FRANCIS Marroquin
--- NOTE | 2016-06-16 14:33 | NUR ---
Discharge Patient left unit with family via PROCESS SAFETY SPECIALIST and wheelchair in a stable condition. IV DC'd intact, no tele to remove, all personal belongings with patient. Transfer packet to [facility] with family, new prescription of Lantus in packet, body sheet completed. Report called to Fide at [facility].
--- NOTE | 2016-06-16 21:07 | PCM.DC.MED ---
Discharge Summary Date of Service Jun 16, 2016 Dates of Hospitalization Date of Hospital Admission Jun 12, 2016 at 14:45 Date of Discharge: Jun 16, 2016 Providers: Admitting Physician: Christi Nicole MD Primary Care Physician: Kana Ferrari MD Attending Physician: Christi Nicole MD Diagnosis at Time of Discharge Diagnosis at Time of Discharge #1 Chronic type 2 Uncontrolled Diabetes Mellitus, Insulin Dependant, present on admission, active #2 Acute Diabetic Keto Acidosis, present on admission, resolved #3 Acute Renal Failure, present on admission, resolved #4 Acute Urinary Retention, present on admission, resolved #5 Chronic Alcohol use disorder, present on admission, active #6 Possible acute overuse of Acetaminophen, present on admission, resolved #7 Acute trauma to Left Second Toe, present on admission, improved #8 Chronic Dementia, present on admission, stable #9 Chronic Hypertension, present on admission, stable Procedures XRay, CTs & MRIs Portable chest x-ray performed 06/12/2016 IMPRESSION: No acute cardiopulmonary disease process. Dictated by: Gisselle Weaver MD, PhD on 06/12/2016 at 12:[address] without contrast performed 06/12/2016 IMPRESSION: No acute intracranial disease process. Dictated by: Gisselle Weaver MD, PhD on 06/12/2016 at 12:57 ECG 12 Lead Normal sinus rhythm, rate 69, left axis deviation, premature atrial complexes, right bundle branch block, left ventricular hypertrophy with IVCD secondary report abnormality, prolonged QT interval 508 ms Brief History From admission history of present illness: "He is reported to have some mild underlying dementia. He also has mood swings which are worse in the evenings. For at least the last 3 days he has been refusing to take insulin, stating that it doesn't help any way. His food and fluid intake has been poor and his reports he has not had anything since yesterday lunchtime. Last evening he was slurring his words and seemed confused and incoherent. He also fell last evening but no injury. This morning when son arrived the patient was on the floor, the falling in, no injury. Son says he was not very responsive, mostly not answering any questions , although he was conscious. business services administrator were called and they did a Glucoscan and found that it was "high" and he was brought to the emergency department. There has not any fever, chills, sweats. No URI or cough. No complaints of pain is chronic intermittent headaches. He did vomit once last evening but no blood noted. does not think she had diarrhea. She is not aware of any urinary complaints." Hospital Course 81-year-old gentleman insulin-dependent diabetes, alcohol use disorder, dementia , hypertension, presents with change in mental status, found to be having acute diabetic ketoacidosis secondary to uncontrolled diabetes mellitus. #1 Chronic type 2 Uncontrolled Diabetes Mellitus, now presumable insulin dependent, present on admission, active -HbA1C = 13.9, remains uncontrolled blood sugars high 200s and mid 300s Hemoglobin A1c was 13.9, patient was unable to describe his home regimen of insulin, and reports family is that he did not take it at home for quite a while. Attempt was made to control diabetes and hospital starting off with basal insulin and correctional, day before discharge outpatient records showed that he was on 30 units of Lantus twice a day, and 12 units correctional 3 times a day before meals. Due to patient's mental status, questionable dementia, as well as his 's, discussion was had with family regarding long-term needs for patients continued diabetes and other medical problems. Patient's son agreed that transition to a long-term facility after discharge would be in patient's best interest. -Residual weakness, physical therapy: Recommend discharge to SNF via cabulance for progression of safe functional mobility. PT to progress as pt tolerates. -C-peptide evaluation: 1.6 #2 Acute Diabetic Keto Acidosis, present on admission, resolved -Treatment for underlying poorly controlled diabetes, as above #3 Acute Renal Failure, present on admission, resolved -secondary to DKA and dehydration -baseline unknown -creatinine 2.69 on admit, now to normal range. #4 Acute Urinary Retention, present on admission, resolved -Patient tolerated Pittman removal and is able to use bedside urinal #5 Chronic Alcohol use disorder, present on admission, active -dose with IV thiamin -watch for withdrawal #6 Possible acute overuse of Acetaminophen, present on admission, resolved -Tylenol level was negative #7 Acute trauma to Left Second Toe, present on admission, improved Most likely due to unwitnessed fall Appears to have improved during hospital stay, no x-rays performed. Patient able to bear weight, and tolerate manipulation of the digit without wincing #8 Chronic Dementia, present on admission, stable -continue donepezil #9 Chronic Hypertension, present on admission, stable -resume lisinopril and simvastatin #10 Disposition -patient not able to manage insulin himself, has difficulties with memory, only oriented to himself. Discharge to long-term facility. Exam Vital Signs (Last) Date Time Temp Pulse Resp B/P Pulse Ox O2 Delivery O2 Flow Rate FiO2 06/16/16 08:12 36.6 63 16 97/47 100 Room Air 06/13/16 12:15 4.00 Exam General: Laying in bed, no apparent distress. HEENT: Normocephalic, atraumatic, EOMI grossly, Cardiovascular: 06/10 Systolic heart murmur, regular rate and rhythm, no JVD, peripheral pulses intact equally to upper and lower extremities. Pulmonary: Clear to auscultation bilaterally, no W/R/R. Abdominal: Soft to palpation, bowel sounds present 4, no hepatosplenomegaly. Negative rebound. Extremities: No edema appreciated. No tenderness, asymmetry. No wounds or ulcers appreciated on his feet Neuro: Neurologically grossly intact, strength is equal bilaterally upper and lower extremities. MSK: able to move extremities on their own volition, strength 5 out of 5 equal bilaterally to upper and lower extremities. Test 06/12/16 12:00 06/12/16 13:20 06/12/16 15:32 06/12/16 22:30 Hemoglobin A1c 13.9% (4.8-5.6) Ketones Small (Negative) Urine Color Straw (YELLOW) Urine Appearance Clear (CLEAR,HAZY) Urine pH 5.0 (5.0-8.0) Urine Specific [place] 1.015 (1.003-1.035) Urine Protein Negativemg/dL (NEG,TRACE) Urine Glucose (UA) 1000mg/dL (NEGATIVE) Urine Occult Blood Moderate (NEGATIVE) Urine Nitrite Negative (NEGATIVE) Urine Bilirubin Negative (NEGATIVE) Urine Urobilinogen Normalmg/dL (NORMAL) Urine Leukocyte Esterase Negative (NEGATIVE) Urine RBC 0-2/hpf (0-2) Urine WBC 0-5/hpf (0-5) Urine Epithelial Cells Occasional/hpf (NONE-MOD) Urine Crystals None seen (NONE SEEN) Urine Bacteria None/hpf (NONE-FEW) Urine Hyaline Casts None/lpf (NONE) Urine Granular Casts None seen (NONE SEEN) Urine Waxy Casts None seen (NONE SEEN) Urine Red Blood Cell Casts None seen (NONE SEEN) Urine White Blood Cell Casts None seen (NONE SEEN) Urine Mucus None seen (None Seen) Urine Trichomonas None seen (NONE SEEN) Urine Yeast None (NONE SEEN) Urinalysis Comment None Urine Culture Reflexed Not indicated Thyroid Stimulating Hormone (TSH) 0.781uIU/mL (0.450-4.500) Lactic Acid Level 1.8mmol/L (0.4-2.0) Hold Gomez Top Tube Received (Received) Test 06/12/16 22:38 06/13/16 03:15 06/13/16 17:33 06/14/16 08:25 Urine Ketones Negativemg/dL (NEGATIVE) Phosphorus Level 3.7mg/dL (2.5-4.9) Magnesium Level 2.5mg/dL (1.6-2.6) Acetaminophen Level < 15.0ug/mL Rx (10-25) Neutrophils (%) (Auto) 59.3% (40-74) Lymphocytes (%) (Auto) 25.8% (14-46) Monocytes (%) (Auto) 12.2% (4-12) Eosinophils (%) (Auto) 1.5% (0-5) Basophils (%) (Auto) 0.4% (0-3) Test 06/14/16 12:37 06/15/16 17:00 06/16/16 03:50 C-Peptide 1.6ng/mL (1.1-4.4) Prealbumin 14mg/dL (20-40) White Blood Count 12.3th/mm3 (3.8-10.1) Red Blood Count 3.21mil/mm3 (4.40-5.80) Hemoglobin 10.1g/dL (13.8-17.2) Hematocrit 29.9% (41.0-50.0) Mean Corpuscular Volume 93.1fL (81-100) Mean Corpuscular Hemoglobin 31.5pg (27.0-35.0) Mean Corpuscular Hemoglobin Concent 33.8% (32.0-37.0) Red Cell Distribution Width 12.6% (12.3-15.4) Platelet Count 239bil/L (150-400) Sodium Level 132mEq/L (134-144) Potassium Level 4.6mEq/L (3.5-5.2) Chloride Level 97mEq/L (97-108) Carbon Dioxide Level 23mmol/L (18-29) Blood Urea Nitrogen 24mg/dL (8-27) Creatinine 1.05mg/dL (0.76-1.27) Estimat Glomerular Filtration Rate 72mL/min (>59) Glucose Level 268mg/dL (60-99) Calcium Level 8.5mg/dL (8.5-10.1) Total Bilirubin 0.4mg/dL (0.0-1.2) Aspartate Amino Transf (AST/SGOT) 14U/L (0-50) Alanine Aminotransferase (ALT/SGPT) 11U/L (0-44) Alkaline Phosphatase 58U/L (25-160) Total Protein 5.2g/dL (6.4-8.4) Albumin 3.0g/dL (3.4-5.0) Discharge Medications Discharge Medications Aspirin (Aspirin) 81 Mg Tablet 81 MG PO DAILY (Reported) Donepezil (Donepezil) 10 Mg Tablet 10 MG PO DAILY (Reported) Erythromycin Ophth Oint (Erythromycin Ophth Oint) 3.5 Gm Oint...g. 1 APPL LEFT_ EYE TID (Reported) Gabapentin (Gabapentin) 300 Mg Capsule 300 MG PO QID (Reported) Insulin Glargine (Lantus U100 Insulin Vial) 100 Unit/Ml Vial 20 UNITS SUBQ BID Prescribed by: NEHEMIAH ARROYO DO Sertraline HCl (Sertraline) 100 Mg Tablet 200 MG PO DAILY (Reported) As needed Buspirone (Buspirone) 15 Mg Tablet 30 MG PO BID PRN PRN For Anxiety (Reported) Dextran 70/Hypromellose/Pf (Artificial Tears Drops) 1 Each [place] 1 DROP LEFT_EYE QID PRN PRN dry eyes (Reported) Fluticasone Propionate (Flonase Allergy Relief) 50 Mcg/Actuation [place].susp 1 SPRAYS NS DAILY PRN PRN allergies (Reported) Mineral Oil/Petrolatum,White (Lubricant Eye Ointment) 3.5 Gm Oint...g. 1 APPLIC LEFT_EYE TID PRN PRN dry eyes (Reported) Additional med instructions There are no additional medications being prescribed, only resumption of medications from home. We have changed your Lantus Insulin regimen from 30 units BID to 20 Units BID STOP Novolin until review of blood sugar by primary care on the medication above. These quantities may increase as we evaluate the dose effects on your blood sugar. Followup Plan Disposition: Discharge to long-term facility Follow-up plan Dr. Worthy will be your physician at [facility]. Discharge Diet: Diabetic Discharge Activity: Outpatient Physical Therapy Patient Instructions Please continue taking your medications as prescribed. You are being admitted to [facility] for specialized care. To help you regain your strength. You need to have Physical Therapy Daily at [facility] to regain your strength and balance. -Consider this the physician order. Follow-up with PCP in: 1 week Time spent Greater than 30 minutes was spent in preparation of discharge with greater than 50% of that time dedicated to patient counseling and coordination of care. . Attending Statement The patient was seen and examined together with Dr. Pollack on 06/16/2016 and I agree with the history, exam and plan as outlined in the note above. . Nehemiah Pollack DO Jun 16, 2016 21:07 Manny Perez MD Jun 18, 2016 07:30
== END 2016-06-16 14:08 | DRG 637 ==
LOC: SED 11:13 → EDBD 11:13 → CCU 14:45 → PCC 23:34
PROVIDERS: ADMIT Internal Medicine; ATTEND Internal Medicine
DX: E13.10 Other specified diabetes mellitus with ketoacidosis without coma (principal); G93.41 Metabolic encephalopathy; N17.9 Acute kidney failure, unspecified; I10 Essential (primary) hypertension; F03.90 Unspecified dementia, unspecified severity, without behavioral disturbance, psychotic disturbance, mood disturbance, and anxiety; E86.0 Dehydration; E78.5 Hyperlipidemia, unspecified; R33.9 Retention of urine, unspecified; Z91.14 Patient's other noncompliance with medication regimen; Z79.4 Long term (current) use of insulin; Z72.89 Other problems related to lifestyle; Z79.82 Long term (current) use of aspirin; Z87.891 Personal history of nicotine dependence